=== PATIENT | female | born 1940 | race Caucasian/White ===

== ENCOUNTER 2016-11-19 17:26 | Inpatient (IN) | payer MEDICARE, OTHER ==
[~2016-11-19] VITALS: Ht 165.1 cm; Wt 41.4 kg
--- NOTE | ~2016-11-19 | EKG ---
PATIENT: MERLIN NOVOA UNIT #: [id number] Ventricular Rate: 95 BPM Atrial Rate: 96 BPM QRS Duration: 90 ms Q-T Interval: 360 ms QTC Calculation(Bezet): 452 ms Calculated R Vonore: 73 degrees Calculated T Vonore: 54 degrees Diagnosis Line: Sinus rhythm Diagnosis Line: Poor R wave progression questionable lead position Diagnosis Line: or body habitus Diagnosis Line: Otherwise normal ECG Diagnosis Line: When compared with ECG of 09-AUG-2015 21:12, Diagnosis Line: Junctional rhythm has replaced Sinus rhythm Diagnosis Line: T wave amplitude has decreased in Inferior leads Diagnosis Line: T wave inversion now evident in Anterior leads Diagnosis Line: Confirmed by EMILI TIJERINA MD ([id number]) on 11/22/2016 Diagnosis Line: 7:52:38 AM INTERPRETING MD: LILLIANA MARSH
--- NOTE | ~2016-11-19 | CO ---
Unit #: [id number] #: [id number] Patient: MERLIN VALENTIN [id number] [place] [address] [facility]. [place], [place] [address] [id number] I MR#: [id number] NAME: MERLIN VALENTIN ROOM: 319 Age: 76 Sex: F Admission Date: 11/20/2016 : 1940 Attending Physician: Kelley Munoz M.D. Primary Care Physician: Primary Care Physician No CONSULTATION REPORT HISTORY OF PRESENT ILLNESS Ms. Valentin is a 76-year-old white female, who I have seen in the past for severe COPD and chronic respiratory failure. She is currently followed by [facility]. Apparently 2 weeks ago, she developed some left-sided chest pain with cough. She was seen by [facility], a chest x-ray was done which nurse practitioner told her there was no pneumonia. She was not treated with antibiotics. Her symptoms improved with less congestion and resolution of pain. She redeveloped pain with cough and congestion and increased shortness of breath, it has redeveloped over the last couple of days. In the emergency room, she had a chest x-ray, which showed new left lower lobe infiltrate. CT scan of the chest revealed a left lower lobe infiltrate and atelectasis and a small left pleural effusion. Her arterial blood gases revealed pH 7.47, pCO2 of 33, PO2 of 45 on 4 L. BMP was unremarkable. BNP was 117. Lactic acid level was initially 2.7 and 1.4. Coags were normal. White blood cell count was 17,800, hematocrit was 40.1, platelet count was normal. We have been asked to see. PAST MEDICAL HISTORY Severe COPD, chronic hypoxemic respiratory failure on O2 at 4 L, osteoporosis, depression, some osteoarthritis. PAST SURGICAL HISTORY Corneal transplant, hysterectomy, gastric bypass, knee surgery, colonoscopy. HOME MEDICATIONS Effexor, vitamins, Ventolin, Pulmicort, and Perforomist nebulizers, Tylenol. ALLERGIES No known allergies. FAMILY HISTORY Negative for lung disease. SOCIAL HISTORY Continued tobacco abuse. Positive for alcohol use. Denies illicit drugs. REVIEW OF SYSTEMS Ten point system, otherwise negative other than mentioned. PHYSICAL EXAMINATION GENERAL: White female, in no distress, sitting up in bed, able to speak in complete sentences. Unit #: [id number] #: [id number] Patient: MERLIN VALENTIN VITAL SIGNS: Blood pressure is 133/90, pulse 92, respiratory rate 18, afebrile. HEENT: Normocephalic and atraumatic. Pupils are equal, round, and reactive. Sclerae nonicteric. Nasal passages patent. Posterior pharynx, clear. Mucous membranes moist. NECK: Supple. No cervical or supraclavicular lymphadenopathy. LUNGS: Reveal diminished breath sounds bilaterally. Prolonged expiratory phase. CARDIAC: Heart sounds distant. Regular rate and rhythm. Could not appreciate murmur, rub, or gallop. ABDOMEN: Nontender. Bowel sounds present. No hepatosplenomegaly. EXTREMITIES: Without clubbing, cyanosis, or edema. NEUROLOGIC: Awake, oriented x3. Cranial nerves intact. Muscle strength symmetric bilaterally. PSYCHIATRIC: Affect calm. SKIN: Warm and dry. DIAGNOSTIC STUDIES LABORATORY RESULTS: As noted. IMPRESSION 1. Acute on chronic hypoxemic respiratory failure. 2. Left lower lobe pneumonia with small left pleural effusion. 3. Severe chronic obstructive pulmonary disease. 4. Tobacco abuse. PLAN Supplemental oxygen to maintain adequate oxygenation. Continue burst steroids, bronchodilators, inhaled corticosteroids. Antibiotics for community-acquired pneumonia. DVT prophylaxis. Further recommendations pending this. Dictated by... Jamel Escalante/jolynn TD: 11/21/2016 00:32 JOB #: [id number] CONSULTATION REPORT Page 1 of 1 X Vikas Moran MD X CONSULTATION REPORT
--- NOTE | ~2016-11-19 | CR72 ---
[facility] A Service of [facility] RADIOLOGY TEXT RESULTS PATIENT: MERLIN NOVOA LOCATION: [facility] 319-01 : 39 UNIT #: [id number] AGE: [address]: Kelley Munoz MD SEX: F ORDER DR: [id number] [facility] [address] [facility]. [place], [place] [address] [id number] I MR#: [id number] Acc #: [id number] NAME: MERLIN NOVOA : 1940 SEX: F STUDY DATE/TIME: 11/19/2016 18:07 UNIT: [address] ROOM: [facility] STUDY DESCRIPTION: CR Chest Single View Portable Attending Physician: Kelley Munoz M.D. Ordering Physician: Torres Romero M.D. Primary Care Physician: Primary Care Physician No MEDICAL IMAGING REPORT This report is preliminary unless electronic signature is present EXAM Single view chest INDICATION Shortness of air, cough and congestion. Dyspnea. FINDINGS Single portable AP view of the chest is compared with 03/30/2016 and 08/09/2015. Heart and mediastinal contours normal. There is new left lower lobe pneumonia. There may be a small left pleural effusion and background emphysema. IMPRESSION 1. Left lower lobe pneumonia and possibly small left effusion. 2. Emphysema. Dictated by... Dandre Rodgers M.D. THIS IS AN ELECTRONICALLY VERIFIED REPORT Dandre Rodgers M.D. at 11/20/2016 3:06 PM EMILIE/gracie TD: 11/20/2016 10:47 JOB #: [id number] MEDICAL IMAGING REPORT Page 1 of 1 COPY
--- NOTE | ~2016-11-19 | DS ---
Unit #: [id number] #: [id number] Patient: MERLIN VALENTIN [id number] [address] [address] [id number] I MR#: [id number] NAME: MERLIN VALENTIN ROOM: 319 Age: 76 Sex: F Admission Date: 11/20/2016 : 1940 Discharge Date: 11/25/2016 Attending Physician: Kelley Munoz M.D. Primary Care Physician: Primary Care Physician No DISCHARGE SUMMARY PRIMARY CARE PROVIDER None. PRINCIPAL DIAGNOSES 1. Acute on chronic hypoxic respiratory failure, now returned to baseline on 4 L of oxygen per nasal cannula continuously. 2. Left lower lobe Klebsiella pneumoniae. 3. Acute exacerbation of chronic obstructive pulmonary disease. 4. Left-sided mucus plugging. 5. Left pleural effusion. ASSESSMENT 1. Severe sepsis secondary to left lower lobe Klebsiella pneumoniae. 2. Acute on chronic hypercapnic hypoxic respiratory failure, now returned to be baseline on 4 L of oxygen per nasal cannula continuously. 3. Gastroesophageal reflux disease. 4. Depression. 5. Underweight. 6. Severe protein malnutrition. 7. Macrocytosis secondary to chronic hypoxia. 8. Tobaccoism. [employer] Dr. Moran, Pulmonology. PROCEDURES Chest x-ray on 11/19/2016 with left lower lobe pneumonia and small effusion, changes of emphysema noted. CT of the chest without contrast on 11/19/2016 with extensive mucus plugging in the left upper and lower lobe bronchi with consolidation in the left lung. Chest x-ray on 11/23/2016 showing a small moderate layering left pleural effusion. CLINICAL HISTORY AND HOSPITAL COURSE Ms. Valentin is a very nice 76-year-old female, who presents to the emergency department with increasing shortness of breath and cough. Please refer to H and P for further details. In the emergency department, she was found to have pneumonia on chest x-ray. At the same time, she was found to [place] [id number]. The patient was subsequently admitted. The patient was placed on broad-spectrum antibiotics and Pulmonology was consulted. Sputum culture ultimately grew Klebsiella pneumoniae, and she has been maintained on appropriate antibiotic therapy. She did have a Unit #: [id number] #: [id number] Patient: BRIGHT,MERLIN small associated pleural effusion, but this is currently layering on exam. Plan is to complete a course of antibiotic therapy. She will follow up chest x-ray in 3 weeks to ensure effusion is resolving. The patient also had an associated COPD exacerbation, but she has been transitioned to oral steroids and is doing well. The patient's only other complaint during hospitalization was some reflux, now she was placed on Protonix. This has resolved. Given it happens only on an intermittent basis, I think Tums [id number] will be appropriate. DISCHARGE CONDITION Stable. DISCHARGE STATUS Discharged to home. DISCHARGE MEDICATIONS Omnicef 300 mg p.o. b.i.d. for another 1 week, melatonin 1 mg at bedtime, daily multivitamin, ferrous sulfate 325 mg daily, Effexor 75 mg daily, Tylenol 650 mg p.o. q.6 hours p.r.n. for pain or headache or fever. Prednisone 10 mg tablets, 2 tablets daily for 3 days, then 1 tablet for 3 days, then discontinue. Formoterol 20 mcg inhaled b.i.d., Pulmicort 0.5 mg inhaled b.i.d., Ventolin inhaler 2 puffs every 4 hours p.r.n. for shortness of breath, and oxygen 4 L per nasal cannula continuously. DISCHARGE INSTRUCTIONS She can follow a regular diet. She can increase her activity as tolerated. Refrain from any further tobacco use. FOLLOWUP The patient is to follow up with Dr. Moran in 3 weeks. Need a repeat chest x-ray at that time. Dictated by... Kelley Munoz M.D. MIK/jolynn TD: 11/28/2016 04:27 JOB #: [id number] DISCHARGE SUMMARY Page 1 of 1 X Kelley Munoz MD DISCHARGE SUMMARY
--- NOTE | ~2016-11-19 | CR67 ---
[facility] A Service of [facility] RADIOLOGY TEXT RESULTS PATIENT: MERLIN NOVOA LOCATION: [facility] 319- : 39 UNIT #: [id number] AGE: [address]: Kelley Munoz MD SEX: F ORDER DR: [id number] [facility] [address] [facility]. [place], [place] [address] [id number] I MR#: [id number] Acc #: [id number] NAME: MERLIN NOVOA : 1940 SEX: F STUDY DATE/TIME: 11/23/2016 16:38 [facility] STUDY DESCRIPTION: CR Chest Decubitus Haja Attending Physician: Kelley Munoz M.D. Ordering Physician: Enrrique Moran M.D. Primary Care Physician: No Primary Care Physician MEDICAL IMAGING REPORT This report is preliminary unless electronic signature is present EXAM Right and left lateral decubitus views of the chest COMPARISON Two views of the chest dated November 23, 2016 and AP chest dated November 19, 2016. INDICATION A 76-year-old female with cough and chest congestion as well as dyspnea for 5 days. Pneumonia and pleural effusion. FINDINGS There is a calcified granuloma in the right upper lobe. There is a healed fracture of the right seventh posterolateral rib. There is no right-sided pleural effusion. No evidence of right-sided pneumonia. There is a small to moderate layering left pleural effusion. There are calcified granulomas in the left lung. No evidence of pneumothorax. Suture material is again noted in the epigastric region. IMPRESSION A small to moderate layering left pleural effusion. No right pleural effusion. Dictated by... Narciso Estrella M.D. THIS IS AN ELECTRONICALLY VERIFIED REPORT Narciso Estrella M.D. at 11/28/2016 1:26 PM NAGA/carmella TD: 11/23/2016 22:43 [facility] A Service of [facility] RADIOLOGY TEXT RESULTS PATIENT: MERLIN NOVOA LOCATION: [facility] 319-01 : 39 UNIT #: [id number] AGE: [address]: Kelley Munoz MD SEX: F ORDER DR: JOB #: [id number] MEDICAL IMAGING REPORT Page 1 of 1 COPY
--- NOTE | ~2016-11-19 | A ---
[facility] Therapy DATE: 11/20/16 Patient: MERLIN NOVOA Physician: PASTORA Address: [address] [place] [address] Room/Bed: [address] [place] [address], Zip: [place] [address] Admit Date: 11/19/16 Date of : 39 Height: 5 5 Weight: 89 40.4 NUTRITIONAL ASSESSMENT: REASON: LOW BMI + CONSULT RE: WEIGHT LOSS PT IS 76 Y.O. FEMALE ADMITTED FOR HCAP, RESP FAILURE PMH: END-STAGE COPD, ETOH ABUSE, OSTEOPOROSIS, GASTRIC BYPASS, DEPRESSION, PERIPHERAL NEUROPATHY Anthropometrics: 5'5" (PER PT), WT: 88# (PER PT) (40 KG), BMI: 14.6, 70%IBW Labs: WNL Meds: PROTONIX, SOLU-MEDROL, FERROUS GLUCONATE, NOVOLOG, ZOFRAN, NACL I/O & Bowel function: 1300/2 Skin Integrity: DRY SKIN NOTED ALL OVER BODY Estimated Nutrition Needs: INCREASED NEEDS 2' PT UNDERWEIGHT, PMH, DECREASED PO INTAKE AND APPETITE NOTED, WEIGHT LOSS NOTED Assessment: CHART REVIEWED AND EVENTS NOTED. PT SEEN FOR LOW BMI + CONSULT RE: WEIGHT LOSS. PT CONFIRMED DECREASED PO INTAKE 2' DECREASED APPETITE PAST 3 WEEKS D/T "NOT FEELING WELL", NOTING SHORTNESS OF BREATH. PT REPORTS HIGHEST WEIGHT IN PAST FEW YEARS HAS BEEN ~100# BUT UNABLE TO IDENTIFY TIME FRAME OF WEIGHT LOSS. PER [employer] Daily [employer]als, PT WEIGHED ~100# BACK IN MARCH 2016. THIS RD ENCOURAGED SMALL FREQUENT HIGH KCAL/HIGH PROTEIN MEALS + SUPPLEMENT INTAKE, PT AGREED TO ENSURE PUDDING. PT STATES SHE DRINKS ENSURE PUDDING AT HOME. RD ALSO PROVIDED WRITTEN AND VERBAL HIGH-CALORIE AND HIGH-PROTEIN NUTRITION DIET EDUCATION. PT AND FAMILY VERBALIZED UNDERSTANDING OF THE TOPIC-REPORTED NO DIET QUESTIONS AT THIS TIME. RD TO FOLLOW. Dx: INADEQUATE PROTEIN-ENERGY INTAKE R/T DECREASED APPETITE, PMH AEB PT REPORT ABOVE, LOW BMI OF 14.6, 70%IBW, ?WEIGHT LOSS NOTED. -INCREASED NUTRIENT NEEDS R/T PMH AEB LOW BMI NOTED 14.6, 70%. Intervention: 1. HH DIET 2. ENSURE PUDDING BID 3. DIET EDUCATION (WRITTEN AND VERBAL) Monitoring, Evaluation and Goals: 1. ORAL INTAKE; CONSUME/TOLERATE >50% OF MEALS AND SUPPLEMENTS 2. WEIGHTS; PROMOTE GRADUAL WEIGHT GAIN; PREVENT FURTHER WEIGHT LOSS 3. GI; PROMOTE REGULAR GI FUNCTION [facility] DATE: 11/20/16 Patient: MERLIN NOVOA Physician: PASTORA Address: [address] [place] [address] Room/Bed: [address] [place] [address], Zip: [place] [address] Admit Date: 11/19/16 Date of : 39 Height: 5 5 Weight: 89 40.4 MONITOR: -PO INTAKE/APPETITE -WEIGHTS -SUPPLEMENT INTAKE -EDUCATION NEEDS Recommendations: 1. PLEASE ORDER CHOCOLATE ENSURE PUDDING BID W/MEALS 2. RECOMMEND TO CHANGE CURRENT DIET ORDER TO HIGH KCAL/HIGH PROTEIN + 6 SMALL MEALS 2' PT UNDERWEIGHT, INCREASED NEEDS 3. APPRECIATE FAMILY AND STAFF TO ENCOURAGE ADEQUATE PO INTAKE 4. PLEASE PROVIDE WEIGHTS q 3 DAYS FOR MONITORING PURPOSES 5. CONSIDER ADDING AN APPETITE STIMULANT, SUCH MEGACE, TO STIMULATE PO INTAKE RD WILL F/U PER PROTOCOL PT IS MODERATELY COMPROMISED Respectfully, NATHAN HUYNH MS, RD, LD [employer] [facility] [employer] [facility] cc: client file
--- NOTE | ~2016-11-19 | CR63 ---
[facility] A Service of [facility] & [facility] RADIOLOGY TEXT RESULTS PATIENT: MERLIN NOVOA LOCATION: [facility] 319-01 : 39 UNIT #: [id number] AGE: [address]: Kelley Munoz MD SEX: F ORDER DR: [id number] [facility] [address] [facility] [place], [place] [address] [id number] I MR#: [id number] Acc #: [id number] NAME: MERLIN NOVOA : 1940 SEX: F STUDY DATE/TIME: 11/23/2016 7:47 [facility] STUDY DESCRIPTION: CR Chest 2 View Attending Physician: Kelley Munoz M.D. Ordering Physician: Kelley Munoz M.D. Primary Care Physician: No Primary Care Physician MEDICAL IMAGING REPORT This report is preliminary unless electronic signature is present EXAM Chest, PA and lateral, 11/23/2016. HISTORY Cough, chest congestion, and shortness of breath beginning 5 days ago, pneumonia. Smoking history for 57 years. COPD and emphysema. FINDINGS The cardiac and mediastinal structures are stable compared with 11/19/2016. There is a moderate-sized left pleural effusion which has increased in size compared with previous exam of 11/19/2016 with infiltrate and/or atelectasis in the left lower lobe. Small right effusion is noted. Lungs are hyperinflated with emphysematous and fibrotic changes characteristic of COPD. No pneumothorax. Scoliosis and degenerative change of the thoracolumbar spine. IMPRESSION 1. Increase in size of the left pleural effusion compared with 11/19/2016, now graded as moderate with infiltrate or atelectasis left lower lobe. 2. Small right effusion with atelectasis right lung base. 3. COPD Dictated by... Sanchez Gregory M.D. THIS IS AN ELECTRONICALLY VERIFIED REPORT Sanchez Gregory M.D. at 11/23/2016 5:06 PM KRT/vinay TD: 11/23/2016 11:57 [facility] A Service of [facility] & [facility] RADIOLOGY TEXT RESULTS PATIENT: MERLIN NOVOA LOCATION: [facility] 319-01 : 39 UNIT #: [id number] AGE: [address]: Kelley Munoz MD SEX: F ORDER DR: JOB #: [id number] MEDICAL IMAGING REPORT Page 1 of 1 COPY
--- NOTE | ~2016-11-19 | CT57 ---
[facility] A Service [facility] RADIOLOGY TEXT RESULTS PATIENT: MERLIN NOVOA LOCATION: [facility] 319-01 : 39 UNIT #: [id number] AGE: [address]: Kelley Munoz MD SEX: F ORDER DR: [id number] [facility] [address] [facility]. [place], [place] [address] [id number] I MR#: [id number] Acc #: [id number] NAME: MERLIN NOVOA : 1940 SEX: F STUDY DATE/TIME: 11/19/2016 21:32 UNIT: A U ROOM: 319 STUDY DESCRIPTION: CT Chest Wo Cont Attending Physician: Kelley Munoz M.D. Ordering Physician: Nick Ahn Primary Care Physician: Primary Care Physician No MEDICAL IMAGING REPORT This report is preliminary unless electronic signature is present EXAM CT chest INDICATIONS Shortness of air for 2 days. Chest pain. COPD. TECHNIQUE CT of the chest without contrast. Coronal and sagittal reconstructions were obtained. This CT exam was performed with one or more of the following radiation dose reduction techniques: automatic control, adjustment of mA and/or kV according to patient size, and iterative reconstruction. COMPARISON Chest radiograph 11/19/2016 and 03/30/2016. CT chest 12/16/2015. FINDINGS There is extensive mucous plugging within the left upper lobe and left lower lobe bronchi. This results in a postobstructive consolidation in the left lower lobe. There is more mild consolidation in the left upper lobe. There is a small left pleural effusion. There is some associated volume loss in the left hemithorax. There is background emphysema. Right lung is essentially clear. There are a few small pulmonary nodules that are unchanged from the 12/16/2015 comparison. No pathologically enlarged mediastinal or hilar lymph nodes. Thoracic aorta is normal in caliber. No pericardial effusion. IMPRESSION 1. Extensive mucous plugging in the left upper lobe and left lower lobe bronchi. This results in volume loss and consolidation in the [facility] A Service [facility] RADIOLOGY TEXT RESULTS PATIENT: MERLIN NOVOA LOCATION: [facility] 319-01 : 39 UNIT #: [id number] AGE: [address]: Kelley Munoz MD SEX: F ORDER DR: left lung. There is a small left pleural effusion. Post treatment CT is recommended to document resolution of the endobronchial lesions to exclude an underlying mass. Dictated by... Dnadre Rodgers M.D. THIS IS AN ELECTRONICALLY VERIFIED REPORT Dandre Rodgers M.D. at 11/20/2016 3:09 PM EMILIE/miguel TD: 11/20/2016 12:36 JOB #: [id number] MEDICAL IMAGING REPORT Page 1 of 1 COPY
--- NOTE | ~2016-11-19 | HP ---
Unit #: [id number] #: [id number] Patient: MERLIN NOVOA [id number] [address] [address] [id number] E MR#: [id number] NAME: MERLIN NOVOA ROOM: Age: 76 Sex: F Admission Date: 11/19/2016 : 1940 Attending Physician: Torres Romero M.D. HISTORY AND PHYSICAL REASON FOR ADMISSION Acute hypoxic respiratory failure/healthcare-acquired pneumonia. HISTORY OF PRESENT ILLNESS The patient is a 76-year-old female with an underlying history of chronic obstructive pulmonary disease, end-stage, on chronic O2, who presented secondary to increased dyspnea on exertion and profound shortness of breath. She was noted to be hypoxic and was also noted to have acute left lower lobe infiltrate. The decision was subsequently made for admission. Patient states that over the past several days she has had increased dyspnea/shortness of breath on exertion. She also states that she has had some mild chest discomfort and/or difficulty with breathing. Thus, we were asked to evaluate and admit patient for the same. PAST MEDICAL HISTORY 1. End-stage COPD. 2. Osteoporosis. 3. Depression. 4. Failure to thrive. 5. Osteoarthritis. PAST SURGICAL HISTORY 1. Corneal transplant. 2. Hysterectomy. 3. Gastric bypass. 4. Knee surgery. 5. Colonoscopy. HOME MEDICATIONS 1. Effexor. 2. Vitamins. 3. Ventolin. 4. Perforomist. 5. Pulmicort. 6. Tylenol. 7. Prednisone. 8. Levaquin. ALLERGIES No known drug allergies. FAMILY HISTORY Reviewed and noncontributory or non-pertinent. Unit #: [id number] #: [id number] Patient: MERLIN NOVOA SOCIAL HISTORY Positive tobacco use ongoing. Positive alcohol use. Negative illicit drug use. REVIEW OF SYSTEMS Please see History of Present Illness. Twelve points otherwise negative except for those positive and noted in the History of Present Illness. PHYSICAL EXAMINATION VITAL SIGNS: Temperature 98, pulse 97, respiratory rate 25, and blood pressure 127/71. GENERAL APPEARANCE: Patient is a frail 76-year-old female on O2 mask in no acute distress. HEAD: Atraumatic and normocephalic. EARS: Tympanic membranes do not reveal any erythema or injection. NECK: Supple. Accessory muscle use noted. CARDIOVASCULAR: S1 and S2, tachycardic, without murmur. RESPIRATORY: Coarse breath sounds are noted with prolonged expiration noted bilaterally. GASTROINTESTINAL/ABDOMEN: Nontender and nondistended. LOWER EXTREMITIES: No evidence of any lower extremity edema and no calf tenderness. ER COURSE The patient received Solu-Medrol, aspirin, normal saline bolus, and vancomycin, as well as Zosyn. DIAGNOSTIC STUDIES ER LABORATORY: BNP of 117. Lactic acid level 2.7. CBC shows a white count of 17.8 and hemoglobin 13.2. BMP is otherwise unremarkable. LFTs are normal. INR 1.1. ABG shows a pH of 7.47, PCO2 of 33, and PO2 of 45. INITIAL IMPRESSION 1. Acute hypoxic respiratory failure. 2. Questionable left lower lobe infiltrate seen on chest x-ray. 3. Leukocytosis. 4. Elevated lactic acid level. 5. End-stage chronic obstructive pulmonary disease with ongoing tobacco abuse. 6. Prior history of hypertension. 7. Osteoarthritis. PLAN Admission. Pulmonary consultation. IV Solu-Medrol, aerosols, and IV antibiotics. CT chest. Symptom management. O2 support. Telemetry floor. Strict I/Os. Overall prognosis of this patient is guarded secondary to ongoing tobacco abuse which she has very poor insight into. The plans have been reviewed with the patient. She is Full Code at the present time. Further hospital course to follow pending above. Dictated by Jamel Peraza/raeann TD: 11/19/2016 20:28 JOB #: [id number] Unit #: [id number] #: [id number] Patient: MERLIN NOVOA HISTORY AND PHYSICAL Page 1 of 1 X Jayne Michaels MD HISTORY AND PHYSICAL
[~2016-11-19 17:26] MED LIST: ACETAMINOPHEN PO; ADVAIR 1001 DISK W/D PO; ALBUTEROL17 GM; ALBUTEROL17 GM INH; ANIMAL SHAPES1 EAC2 PO; BLACK COHOSH40 M1; EFFEXOR PO; EFFEXOR75 M1 PO; FLAGYL PO; FLOMAX0.4 M1 PO; FOLIC ACID PO; LEVAQUIN PO; LEVAQUIN750 MG PO; LOVENOX30 MG/0.3 SUBQ; MOBIC PO; MULTI VITAMIN1 EACH PO; OYSTER CALCIUM500 MG PO; PERCOCET7.5 PO; PERFOROMIS20 MCG/2 M INH; PREDNISONE PO; PROBIOTIC1 EACH PO; PULMICORT0.25 MG/2 INH; SPIRIVA18 MCG INH; SULF-PRED 10-0.10 ML OP; SYMBICORT INH; THIAMINE HCL100 M1 PO; VICODIN PO; VIT B-12 PO; VITAMIN B 12; VITAMIN C500 M1 PO; ZITHROMAX PO
[2016-11-19 17:32] LABS: ARTERIAL BLOOD GAS CARBOXY HB 0.9 %sat (0.0-9.0); ARTERIAL BLOOD GAS HCO3 24.4 mmol/L; ARTERIAL BLOOD GAS MET HB 0.9 %sat (0.0-2.0); ARTERIAL BLOOD GAS PCO2 33.6 mmHg (35.0-45.0)
[2016-11-19 17:33] LABS: ARTERIAL BLOOD GAS ALLEN TEST NORMAL; ARTERIAL BLOOD GAS ART SITE RIGHT RADIAL; ARTERIAL BLOOD GAS DELIVERY NASAL CANNULA; ARTERIAL BLOOD GAS PO2 45.4 mmHg (80.0-100); ARTERIAL DRAW? YES
[2016-11-19 18:16] LABS: POC - TROPONIN <0.05 ng/mL (<=0.05)
[2016-11-19 18:30] LABS: BASOPHIL# 0.1 X10e3 (0-0.3); BASOPHIL% 0.4 % (0-2.5); DIFF IND YES; EOSINOPHIL% 0.2 % (0.0-7.0); HEMATOCRIT 40.1 % (35.0-45.0); HEMOGLOBIN 13.2 gm/dL (12.0-16.0); LYMPHOCYTE# 1.1 X10e3 (1.0-3.5); LYMPHOCYTE% 6.2 % (17.0-45.0); MEAN CELL VOLUME 102.5 FL (83-96); MEAN CORPUSCULAR HEMOGLOBIN 33.8 PG (28-34); MEAN PLATELET VOLUME 8.4 FL (6.5-11.5); MONOCYTE# 1.2 X10e3 (0-1.0); MONOCYTE% 6.8 % (3.0-12.0); NEUTROPHIL# 15.4 X10e3 (1.5-7.1); NEUTROPHIL% 86.4 % (40-75); PLATELET COUNT 319 X10e3 (140-420); RED BLOOD COUNT 3.92 X10e (3.90-5.30); RED CELL DISTRIBUTION WIDTH 11.8 % (11.0-15.5); WHITE BLOOD COUNT 17.8 X10e3 (4.0-10.5)
[2016-11-19 18:37] LABS: INR 1.1; PROTHROMBIN TIME (PATIENT) 11.5 SECONDS (10.0-11.7)
[2016-11-19 18:50] LABS: ALBUMIN SERUM 3.8 g/dL (3.5-5.0); BILIRUBIN, DIRECT 0.4 mg/dL (0.0-0.2); BILIRUBIN,INDIRECT 0.8 mg/dL (0.0-0.9); BILIRUBIN,TOTAL 1.2 mg/dL (0.2-2.0); CALCIUM SERUM 9.2 mg/dL (8.4-10.2); CREATININE SERUM 0.6 mg/dL (0.6-1.4); GLOM FILT RATE Estimated 87.9 mL/min (>60); POTASSIUM 4.2 mmol/L (3.5-5.1); PROTEIN TOTAL SERUM 6.8 g/dL (6.0-8.3)
[2016-11-19 18:59] LABS: PLATELET ESTIMATE NORMAL (NORMAL)
[2016-11-19] MEDS ORDERED: FERRO-TIME325 MG PO (19:14)
[2016-11-19] MEDS ORDERED: MELATONIN3 MG PO (19:15)
[2016-11-21 06:09] LABS: HEMATOCRIT 31.9 % (35.0-45.0); MEAN CELL VOLUME 102.5 FL (83-96); MEAN CORPUSCULAR HEMOGLOBIN 33.8 PG (28-34); MEAN PLATELET VOLUME 8.1 FL (6.5-11.5); RED BLOOD COUNT 3.11 X10e (3.90-5.30); RED CELL DISTRIBUTION WIDTH 11.9 % (11.0-15.5); WHITE BLOOD COUNT 21.4 X10e3 (4.0-10.5)
[2016-11-21 06:10] LABS: HEMOGLOBIN 10.5 gm/dL (12.0-16.0)
[2016-11-21 06:53] LABS: CALCIUM SERUM 8.9 mg/dL (8.4-10.2); CREATININE SERUM 0.5 mg/dL (0.6-1.4); GLOM FILT RATE Estimated 93.4 mL/min (>60); POTASSIUM 4.1 mmol/L (3.5-5.1)
[2016-11-22 06:10] LABS: HEMATOCRIT 31.9 % (35.0-45.0); HEMOGLOBIN 10.5 gm/dL (12.0-16.0); MEAN CELL VOLUME 102.6 FL (83-96); MEAN CORPUSCULAR HEMOGLOBIN 33.6 PG (28-34); MEAN CORPUSCULAR HGB CONC 32.7 g/dL (30-36); MEAN PLATELET VOLUME 8.1 FL (6.5-11.5); RED BLOOD COUNT 3.11 X10e (3.90-5.30); RED CELL DISTRIBUTION WIDTH 11.8 % (11.0-15.5); WHITE BLOOD COUNT 11.1 X10e3 (4.0-10.5)
[2016-11-25] MEDS ORDERED: PREDNISONE10 MG PO ×2 (10:17→10:18)
[2016-11-25] MEDS ORDERED: OMNICEF300 MG PO (10:18)
== END 2016-11-25 10:53 | disposition home or self-care (01) | DRG 871 ==
LOC: CED 17:26 → C3A PCU 19:54 → CED 19:54 → C3A PCU 11-20 07:33
PROVIDERS: Emergency Medicine; Internal Medicine; Student in an Organized Health Care Education/Training Program
DX: A41.9 Sepsis, unspecified organism (principal); J96.21 Acute and chronic respiratory failure with hypoxia; E43 Unspecified severe protein-calorie malnutrition; J15.0 Pneumonia due to Klebsiella pneumoniae; J91.8 Pleural effusion in other conditions classified elsewhere; T17.890A Other foreign object in other parts of respiratory tract causing asphyxiation, initial encounter; D75.89 Other specified diseases of blood and blood-forming organs; J96.22 Acute and chronic respiratory failure with hypercapnia; J44.1 Chronic obstructive pulmonary disease with (acute) exacerbation; J44.0 Chronic obstructive pulmonary disease with (acute) lower respiratory infection; Z68.1 Body mass index [BMI] 19.9 or less, adult; R65.20 Severe sepsis without septic shock; F17.200 Nicotine dependence, unspecified, uncomplicated; Y95 Nosocomial condition; X58.XXXA Exposure to other specified factors, initial encounter; K21.9 Gastro-esophageal reflux disease without esophagitis; F32.9 Major depressive disorder, single episode, unspecified; F41.9 Anxiety disorder, unspecified; Z90.710 Acquired absence of both cervix and uterus; Z98.84 Bariatric surgery status
CPT/HCPCS: 36600; 71010; 71020; 71035; 71250; 80048; 80076; 82553; 82607; 82803; 82947; 83605; 83880; 84484; 85025; 85027; 85610; 87040; 87070; 87077; 87186; 87205; 87899; 93005; 94640; 94667; 94760; 97110; 97116; 97162; 97166; 97530; 97535; 99285; C9113; G8978-GP; G8979-GP; G8980-GP; G8987-GO; G8988-GO; G8989-GO; J0456; J0696; J1815; J2543; J2920; J2930; J3370